=== PATIENT | male | born 2000 | race Caucasian/White ===

== ENCOUNTER → 2021-09-20 | Outpatient (CLI) | payer OTHER ==
[2021-09-25 08:10] LABS: HSV-1 DNA Positive (Negative); HSV-2 DNA Negative (Negative)
== END ==
LOC: LAB SHORT 13:22
PROVIDERS: Registered Nurse Community Health
DX: Z11.3 Encounter for screening for infections with a predominantly sexual mode of transmission (principal)
CPT/HCPCS: 87529